=== PATIENT | female | born 2000 | race Caucasian/White ===

== ENCOUNTER 2021-05-27 15:37 | Emergency (ER) | payer OTHER, SELFPAY ==
[2021-05-27 16:02] VITALS: BP 113/76; PULSE 73; RESP 18; TEMP 37.3; O2SAT 99
--- NOTE | 2021-05-27 16:30 | ED.URI ---
HPI - URI/Sore Throat General Chief Complaint: Upper Respiratory Infection Stated Complaint: stuffy nose and throat drainage Time Seen by Provider: 05/27/21 16:15 Source: patient, RN notes reviewed and old records reviewed Mode of arrival: ambulatory Limitations: no limitations History of Present Illness HPI Narrative: 20 year old female who presents to [facility] care with complaints of nasal drainage and congestion for the past 1 week. Patient states that she was seen in the emergency room at [facility] in [place] on Sunday and had strep test and COVID test which were negative and was treated with Amoxicillin. Patient is concerned that she has been with friend who tested positive for COVID today at this facility. Patient denies any cough or congestion, denies any shortness of breath or any acute fevers. MD elicited complaint: sore throat, rhinorrhea and nasal congestion Pertinent past history: other (tonsillitis) Onset (ago): week(s) (1) Consistency: constant Description of mucous: clear Able to tolerate fluids by mouth: Yes Exacerbating factors: nothing Relieving factors: nothing Context: sick contacts Associated symptoms: denies other symptoms Treatments prior to arrival: other (On Amoxicillin) Related Data Home Medications Medication Instructions Recorded Confirmed sertraline 05/27/21 Allergies Allergy/AdvReac Type Severity Reaction Status Date / Time No Known Allergies Allergy Verified 05/27/21 16:15 Review of Systems Review of Systems: Narrative: CONSTITUTIONAL: Denies fever, chills, or sweats. EYES: Denies visual changes, redness, or discharge. ENT:Positive rhinorrhea, congestion, sore throat, no otalgia. CARDIOVASCULAR: Denies chest pain, palpitations, or edema. RESPIRATORY: Denies cough or dyspnea. GASTROINTESTINAL: Denies abdominal pain, nausea, vomiting, or diarrhea. GENITOURINARY: Denies dysuria or hematuria. SKIN: Denies rash or itching. MUSCULOSKELETAL: Denies back pain, joint pain, or myalgia. NEUROLOGIC: Denies headache, numbness, or weakness. PSYCHIATRIC:Positive anxiety or depression. All systems reviewed & are unremarkable except as noted in HPI and below PMFSH Past Medical History Medical History (Updated 05/29/21 @ 14:55 by Adina Watts NP) Anxiety and depression Bipolar 1 disorder Surgical History Surgical History (Updated 05/29/21 @ 14:56 by Adina Watts NP) No history of previous surgery Family History Family History (Updated 05/29/21 @ 14:57 by Adina Watts NP) Grandparent Hypertension Heart disease Diabetes mellitus Breast cancer Arthritis Mother Hypertension Social History Social History (Updated 05/29/21 @ 14:58 by Adina Watts NP) Tobacco type: e-cigarettes/vaping Alcohol intake: former Substance use: current Substance use type: marijuana Living arrangements: with family Gender identity (if verbalized by the patient): Female Comments At time of signature, agree with nursing past medical, surgical, social and family history. There is no relevant family history pertinent to the presenting complaint Exam Narrative: Exam Narrative: GENERAL: Well-appearing, well-nourished, and in no acute distress. HEAD: Normocephalic, atraumatic. EYES: PERRLA and EOMI. ENT: Nares red with clear rhinorrhea no epistaxis. Mucous membranes moist.TM's normal with good light reflex, throat red with no lesions or exudates, tonsils enlarged NECK: Supple.no lymphadenopathy CHEST: Clear to auscultation. No respiratory distress.SAO2 99% on room air HEART: Regular rate and rhythm. No murmur heard. Normal peripheral pulses. ABDOMEN: Soft, nontender, nondistended, normal active bowel sounds. EXTREMITIES: Normal range of motion. No edema. SKIN: Warm, dry, no rash. NEURO: No focal deficits. Alert and oriented x3. Course Vital Signs Vital signs: Vital Signs Temperature 37.3 C 05/27/21 16:02 Pulse Rate 73 05/27/21 16:02 Respiratory
[2021-05-28 16:46] LABS: SARS-CoV-2 RNA PCR Positive
== END 2021-05-27 16:59 | disposition home or self-care (01) ==
PROVIDERS: Emergency Provider Registered Nurse; PCP Nurse Practitioner Family
DX: U07.1 COVID-19 (principal); F17.200 Nicotine dependence, unspecified, uncomplicated
CPT/HCPCS: 87081; 87426; 87804; 87880; 99213; C9803; G0463; U0003; U0005

== ENCOUNTER 2023-07-25 12:25 | Emergency (ER) | payer OTHER, SELFPAY ==
[2023-07-25 12:35] VITALS: BP 119/77; PULSE 98; RESP 18; TEMP 36.5; O2SAT 98
--- NOTE | 2023-07-25 12:37 | ED.FEMALEGU ---
HPI - Female Genitourinary General Chief complaint: Urogenital-Female Stated complaint: Urinary Problem Source: patient and RN notes reviewed History of Present Illness HPI Narrative: 22 yo F Presents to urgent care with complaints of either having a UTI or STD. Pt reports dysuria, burning with urination, itchiness, foul odor and discomfort down there. PT states she was told a girl she was messing around with has chlamydia. Pt reports a little vaginal discharge. Denies any lower pelvic or abdominal pain. Denies any flank pain, back pain, or vomiting. When asked if she has any fevers or chills, she states she was sick this past week so she's not sure if it was from that or something different. No fevers today. Related Data Home Medications Medication Instructions Recorded Confirmed escitalopram oxalate 20 mg tablet 20 mg PO BID 07/25/23 07/25/23 (Lexapro) hydroxyzine HCl 25 mg tablet 25 mg PO TID PRN Anxiety 07/25/23 07/25/23 risperidone 1 mg tablet (Risperdal) 1 mg PO BID 07/25/23 07/25/23 sertraline 100 mg tablet (Zoloft) 150 mg PO DAILY 07/25/23 07/25/23 trazodone 100 mg tablet 100 mg PO HS 07/25/23 07/25/23 Allergies Allergy/AdvReac Type Severity Reaction Status Date / Time No Known Allergies Allergy Verified 07/25/23 12:47 Review of Systems Review of Systems: Pertinent positives and pertinent negatives per HPI. [facility] Past Medical History Medical History (Updated 07/25/23 @ 13:49 by Yaneli Monk APRN) Anxiety and depression Bipolar 1 disorder Surgical History Surgical History (Updated 05/29/21 @ 14:56 by Adina Watts NP) No history of previous surgery Family History Family History (Updated 05/29/21 @ 14:57 by Adina Watts NP) Grandparent Hypertension Heart disease Diabetes mellitus Breast cancer Arthritis Mother Hypertension Social History Social History (Updated 05/29/21 @ 14:58 by Adina Watts NP) Tobacco type: e-cigarettes/vaping Alcohol intake: former Substance use: current Substance use type: marijuana Living arrangements: with family Gender identity (if verbalized by the patient): Female Comments At the time of my signature, I reviewed and agree with the nursing past medical, surgical, social, and family history. There is no relevant family history pertinent to the patient complaint. Exam Narrative: GENERAL: This is a well-nourished, well-developed patient, in no apparent distress. HEAD: normocephalic, atraumatic. EYES: Sclera clear/white. Vision is grossly intact. EARS: External ears normal, auditory canals clear and without drainage. Hearing grossly intact. NOSE: External nose normal with no obvious nasal discharge, nares without redness, no rhinorrhea. THROAT: Mucous membranes moist, posterior pharynx clear. NECK: Neck supple, non-tender without lymphadenopathy, masses or thyromegaly. CARDIOVASCULAR: Regular rate and rhythm without murmurs, gallops, or rubs. RESPIRATORY: Clear to auscultation. Breath sounds equal bilaterally. No wheezes, rales, or rhonchi. GASTROINTESTINAL: Abdomen soft, non-tender, nondistended. Bowel sounds are active. No hepato-splenomegaly, or palpable masses. No guarding. SKIN: warm, intact with no suspicious lesions or rash, good texture and turgor. NEURO: awake, alert, and oriented to person, place and time. There were no obvious focal neurologic abnormalities. EXTREMITIES: No clubbing, cyanosis, or edema. No joint tenderness, effusion, or edema noted. BACK: Nontender without deformity or crepitus. No flank tenderness. Course Course Level of Care: Express Care Visit Vital Signs Vital signs: Vital Signs Temperature 97.7 F 07/25/23 12:35 Pulse Rate 98 07/25/23 12:35 Respiratory Rate 18 07/25/23 12:35 Blood Pressure 119/77 07/25/23 12:35 Pulse Oximetry 98 07/25/23 12:35 Oxygen Delivery Room Air 07/25/23 12:35 Temperature 97.7 F 07/25/23 12:35 Pulse Rate 98 07/25
[2023-07-25] MEDS: cefTRIAXone 500 MG, LIDOCAINE HCL 1% LOCAL INJ 1 ML IM (13:33)
[2023-07-25 20:20] LABS: Trichomonas Vag PCR NOT DETECTED (NOT DETECTE)
[2023-07-25 20:43] LABS: Chlamydia trachomatis NOT DETECTED (NOT DETECTE); Neisseria gonorrhoeae PCR NOT DETECTED (NOT DETECTE)
== END 2023-07-25 13:53 | disposition home or self-care (01) ==
PROVIDERS: Emergency Provider Nurse Practitioner Family; PCP Nurse Practitioner Family
DX: R30.0 Dysuria (principal); L29.2 Pruritus vulvae; R10.2 Pelvic and perineal pain; N89.8 Other specified noninflammatory disorders of vagina; F41.9 Anxiety disorder, unspecified; F31.9 Bipolar disorder, unspecified
CPT/HCPCS: 81003; 87077; 87086; 87186; 87491; 87591; 87661; 96372; 99214; G0463; J0696

== ENCOUNTER 2024-07-26 18:26 | Emergency (ER) | payer OTHER, SELFPAY ==
[2024-07-26 18:33] VITALS: BP 113/55; PULSE 99; RESP 20; TEMP 36.8; O2SAT 98
--- NOTE | 2024-07-26 18:53 | ED.URI ---
HPI - URI/Sore Throat General Chief Complaint: Upper Respiratory Infection Stated Complaint: cough Time Seen by Provider: 07/26/24 18:53 Source: patient, RN notes reviewed and old records reviewed Mode of arrival: ambulatory Limitations: no limitations History of Present Illness HPI Narrative: 23-year-old female to Express Care with complaint of cough and congestion for 1 month. Patient reports seeing her PCP a few weeks ago where she was given antibiotics and steroids. Patient states that she completed treatment little over a week ago. Patient states that symptoms have returned slowly over the past week and have become acutely worse over the past 2 days. Patient endorses coughing up white mucus. Patient has attempted to treat at home with Mucinex DM with little to no relief. Patient states that she vapes and smokes weed constantly . Patient states that family members have recommended that she go to rehab for this. Patient resting comfortably in exam room in no acute distress. Respirations even and nonlabored. Patient able to speak in full sentences without difficulty. Related Data Home Medications Medication Instructions Recorded Confirmed hydroxyzine HCl 25 mg tablet 25 mg PO TID PRN Anxiety 07/25/23 07/25/23 sertraline 100 mg tablet (Zoloft) 150 mg PO DAILY 07/25/23 07/25/23 trazodone 100 mg tablet 100 mg PO HS 07/25/23 07/25/23 lamotrigine 100 mg tablet mg 07/26/24 lurasidone 40 mg tablet mg 07/26/24 prazosin 5 mg capsule mg 07/26/24 Allergies Allergy/AdvReac Type Severity Reaction Status Date / Time No Known Allergies Allergy Verified 07/26/24 18:28 Review of Systems Review of Systems: All systems reviewed & are unremarkable except as noted in HPI and below Constitutional: Constitutional: Reports no additional constitutional complaints Eyes: Eyes: Reports no additional eye complaints ENT: Reports as per HPI and Reports nasal congestion Cardiovascular: Cardiovascular: Reports no additional cardiovascular complaints, Denies chest pain and Denies dyspnea Respiratory: Respiratory: Reports no additional respiratory complaints, Reports change in phlegm color, Reports cough, Reports pain with cough and Denies dyspnea Musculoskeletal: Musculoskeletal: Reports no additional musculoskeletal complaints Neurologic: Reports system reviewed and no additional complaints, except as documented Psychiatric: Psychiatric: Reports no additional psychiatric complaints PMFSH Past Medical History Medical History Anxiety and depression Bipolar 1 disorder Surgical History Surgical History No history of previous surgery Family History Family History Grandparent Hypertension Heart disease Diabetes mellitus Breast cancer Arthritis Mother Hypertension Social History Social History Tobacco type: e-cigarettes/vaping Alcohol intake: former Substance use: current Substance use type: marijuana Living arrangements: with family Gender identity (if verbalized by the patient): Female Comments At the time of my signature, I reviewed and agree with the nursing past medical, surgical, social, and family history. There is no relevant family history pertinent to the patient complaint. Exam Const: General: cooperative, healthy appearing, no acute distress, well developed, alert, well groomed and well nourished Nutritional Appearance: well nourished Orientation/consciousness: patient oriented x3 Limitations: no limitations HENMT: Head: normal to inspection Ears: external ears normal Face/Nose/Sinus: Normal external nose present, Normal nares present, normal facial exam, No erythema and No edema Face and sinus: normal facial exam, no erythema and no edema Mouth:
[2024-07-26] MEDS: IPRATROPIUM 0.5 MG/ALBUTEROL SULFATE 2.5 MG AMPUL.NEB 3 ML INHALATION (19:08)
--- NOTE | 2024-07-26 19:27 | PC.NURSE ---
pulse ox 98% ra, hr 94, and said feeling better, able to take deeper breaths.
== END 2024-07-26 19:35 | disposition home or self-care (01) ==
PROVIDERS: Emergency Provider Nurse Practitioner Family; PCP Nurse Practitioner Family
DX: J40 Bronchitis, not specified as acute or chronic (principal); F17.290 Nicotine dependence, other tobacco product, uncomplicated; F12.90 Cannabis use, unspecified, uncomplicated; F41.9 Anxiety disorder, unspecified; F32.A Depression, unspecified
CPT/HCPCS: 94640; 99213; G0463

== ENCOUNTER 2024-09-08 11:01 | Emergency (ER) | payer OTHER, SELFPAY ==
[2024-09-08 11:07] VITALS: BP 117/72; PULSE 83; RESP 18; TEMP 36.6; O2SAT 98
--- NOTE | 2024-09-08 12:10 | ED_ITS ---
HPI - General Adult General Chief complaint: Wound/Laceration Stated complaint: Glass Under Finger Nail Time Seen by Provider: 09/08/24 12:00 Source: patient, RN notes reviewed and old records reviewed Mode of arrival: ambulatory Limitations: no limitations History of Present Illness HPI narrative: 24 year old female who presents to [facility] care with complaints of a sliver of her screen saver off of her phone going under the radial side of her nail of her right index finger since last evening. Patient has not soaked area or taken anything for her discomfort which she rates at a 8/10. Patient reports that she needs a work note for today. MD complaint: possible foreign body right index finger Onset (ago): day(s) (last evening) Severity scale (1-10): 8 Pain Consistency: constant Treatments prior to arrival: none Related Data Home Medications Medication Instructions Recorded Confirmed hydroxyzine HCl 25 mg tablet 25 mg PO TID PRN Anxiety 07/25/23 09/08/24 sertraline 100 mg tablet (Zoloft) 150 mg PO DAILY 07/25/23 09/08/24 trazodone 100 mg tablet 100 mg PO HS 07/25/23 09/08/24 lamotrigine 100 mg tablet See Rx Instructions .Route .COMPLEX 07/26/24 09/08/24 lurasidone 40 mg tablet See Rx Instructions .Route .COMPLEX 07/26/24 09/08/24 prazosin 5 mg capsule 5 mg PO DAILY 07/26/24 09/08/24 Allergies Allergy/AdvReac Type Severity Reaction Status Date / Time No Known Allergies Allergy Verified 09/08/24 11:29 Review of Systems Review of Systems: CONSTITUTIONAL: Denies fever, chills, or sweats. EYES: Denies visual changes, redness, or discharge. ENT: Denies rhinorrhea, congestion, sore throat, or otalgia. CARDIOVASCULAR: Denies chest pain, palpitations, or edema. RESPIRATORY: Denies cough or dyspnea. GASTROINTESTINAL: Denies abdominal pain, nausea, vomiting, or diarrhea. GENITOURINARY: Denies dysuria or hematuria. SKIN: Denies rash or itching.reports sliver of phone saver under upper radial nail bed of right index finger MUSCULOSKELETAL: Denies back pain, joint pain, or myalgia. NEUROLOGIC: Denies headache, numbness, or weakness. PSYCHIATRIC: Positive for history of anxiety or depression. All systems reviewed & are unremarkable except as noted in HPI and below PMFSH Past Medical History Medical History Anxiety and depression Bipolar 1 disorder Surgical History Surgical History No history of previous surgery Family History Family History Grandparent Hypertension Heart disease Diabetes mellitus Breast cancer Arthritis Mother Hypertension Social History Social History Tobacco type: e-cigarettes/vaping Alcohol intake: former Substance use: current Substance use type: marijuana Living arrangements: with family Gender identity (if verbalized by the patient): Female Comments At time of signature, agree with nursing past medical, surgical, social and family history. There is no relevant family history pertinent to the presenting complaint Exam Narrative: GENERAL: Well-appearing, well-nourished, and in no acute distress. HEAD: Normocephalic, atraumatic. EYES: PERRLA and EOMI. ENT: Nares clear, no rhinorrhea or epistaxis. Mucous membranes moist. NECK: Supple.no lymphadenopathy CHEST: Clear to auscultation. No respiratory distress. SAO2 98% on room air HEART: Regular rate and rhythm. No murmur heard. Normal peripheral pulses. ABDOMEN: Soft, nontender, nondistended, normal active bowel sounds. EXTREMITIES: Normal range of motion. No edema. SKIN: Warm, dry, no rash. reports sliver of screen saver under upper radial aspect of her nail bed on right index finger, no redness swelling noted to finger reports pain to area on palpation, no visible foreign body NEURO: No focal deficits. Alert and oriented x3. Course Course Emergency Course: Patient is aware of diagnosis, understands and agrees to treatment plan.? Anticipatory guidance given.? Patient agrees to follow-up as directed and is aware of reasons to seek care at the emergency department. Portions of this record may have been created with voice recognition software Level of Care: Express Care Visit Vital Signs Vital signs: Vital Signs Temperature 36.6 C 09/08/24 11:07 Pulse Rate 83 09/08/24 11:07 Respiratory Rate 18 09/08/24 11:07 Blood Pressure 117/72 09/08/24 11:07 Pulse Oximetry 98 09/08/24 11:07 Oxygen Delivery Room Air 09/08/24 11:07 Temperature 36.6 C 09/08/24 11:07 Pulse Rate 83 09/08/24 11:07 Respiratory Rate 18 09/08/24 11:07 Blood Pressure 117/72 09/08/24 11:07 Pulse Oximetry 98 09/08/24 11:07 Oxygen Delivery Room Air 09/08/24 11:07 Reviewed Procedures Other Procedure Procedure 1: Other Procedure: 1215 right index finger soaked in antibacterial saline solution and using sterile tweezers radial aspect of upper nail bed area probed for possible foreign body magnification used with no visible foreign body noted. Medical Decision Making MDM Narrative Medical decision making narrative: Exam findings show no acute concerns or changes; patient is non-toxic appearing and is in no distress.? Patient is appropriate for outpatient treatment and follow-up Differential Diagnosis Differential Diagnosis: possible foreign body right index finger nail bed, pain to right index finger Medical Records Medical records reviewed: Yes I reviewed the external patient's medical records. Vital Signs Vital Signs: Vital Signs Temperature 36.6 C 09/08/24 11:07 Pulse Rate 83 09/08/24 11:07 Respiratory Rate 18 09/08/24 11:07 Blood Pressure 117/72 09/08/24 11:07 Pulse Oximetry 98 09/08/24 11:07 Oxygen Delivery Room Air 09/08/24 11:07 Temperature 36.6 C 09/08/24 11:07 Pulse Rate 83 09/08/24 11:07 Respiratory Rate 18 09/08/24 11:07 Blood Pressure 117/72 09/08/24 11:07 Pulse Oximetry 98 09/08/24 11:07 Oxygen Delivery Room Air 09/08/24 11:07 Critical Care Time Critical Care Time Critical Care Time: No Discharge Plan Discharge Clinical Impression: Foreign body in skin of finger Qualifiers: Encounter type: initial encounter Qualified Code(s): S60.459A - Superficial for eign body of unspecified finger, initial encounter Patient Disposition: Home, Self-Care Condition: Stable Instructions: Mupirocin (On the skin) Additional Instructions: Soak right index finger and warm soapy water twice daily apply mupirocin ointment If no improvement follow-up in the ED Tylenol or ibuprofen for any fever pain If your symptoms persist, change or worsen significantly before you can contact your personal physician then please, without delay, go to the emergency department for further evaluation. Follow-up with PCP in 7-10 days or sooner if needed Prescriptions: New mupirocin 2 % ointment 1 applic topical BID Qty: 22 0RF No Action hydroxyzine HCl 25 mg Tablet 25 mg PO TID PRN (Reason: Anxiety) sertraline [Zoloft] 100 mg Tablet 150 mg PO DAILY trazodone 100 mg Tablet 100 mg PO HS prazosin 5 mg capsule 5 mg PO DAILY lamotrigine 100 mg tablet See Rx Instructions .ROUTE .COMPLEX Rx Instructions: ass prescribed lurasidone 40 mg tablet See Rx Instructions .ROUTE .COMPLEX Rx Instructions: as prescribed Follow-up/Referrals: Trey,Jeanette Rosado APN [Primary Care Provider] - Stand Alone Forms: Work/School Release IP Time of Disposition: 12:26 Quality [place] Coma Scale Eyes: Open Verbal: Oriented and Alert Motor: Follows Commands [place] Coma Total Score: 15
== END 2024-09-08 12:30 | disposition home or self-care (01) ==
PROVIDERS: Emergency Provider Registered Nurse; PCP Nurse Practitioner Family
DX: S60.450A Superficial foreign body of right index finger, initial encounter (principal); W25.XXXA Contact with sharp glass, initial encounter; F41.9 Anxiety disorder, unspecified; F31.9 Bipolar disorder, unspecified; F17.290 Nicotine dependence, other tobacco product, uncomplicated; F12.90 Cannabis use, unspecified, uncomplicated
CPT/HCPCS: 99213; G0463

== ENCOUNTER 2025-04-24 18:23 | Emergency (ER) | payer OTHER, SELFPAY ==
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
--- OUTSIDE RECORDS SUMMARY | 2025-04-24 18:25 | XMS_ITS | Clinical Summary ---
Author Organization [facility] Address [address] [place] [address] Phone Care Team Providers Care Sugar Cane Planter Machine Operator Name Role Phone Trey, Jeanette ROSARIO CNP Primary Care Provider [phone] Allergies Active Allergy Reactions Criticality Noted Date Comments Ondansetron Vomiting 02/18/2025 Medications citalopram (CELEXA) 20 MG Tablet Take 30 mg by mouth daily. Active risperiDONE (RISPERDAL) 1 MG Tablet Take 1 mg by mouth daily. Active hydrOXYzine (VISTARIL) 25 MG Capsule Take 1 Cap by mouth 3 times daily as needed for Anxiety. 30 Cap 0 Active sertraline (ZOLOFT) 50 MG Tablet Take 50 mg by mouth daily. Active traMADol (Ultram) 50 MG Tablet Take 1 Tablet by mouth every 8 hours as needed for Moderate or more severe pain. 12 Tablet 1 Active ondansetron (ZOFRAN) 4 MG Tablet Take 1-2 Tablets by mouth every 8 hours as needed for Nausea - 1st line. 10 Tablet 1 Active prochlorperazin e (COMPAZINE) 5 MG Tablet Take 1-2 Tablets by mouth every 6 hours as needed for Nausea - 1st line. 20 Tablet 5 Active famotidine (PEPCID) 20 MG Tablet Take 1 Tablet by mouth 2 times daily as needed for Heartburn (Stomach irritation). 30 Tablet 5 Active prochlorperazin e (COMPAZINE) 5 MG Tablet Take 1-2 Tablets by mouth every 6 hours as needed for Nausea - 1st line. 10 Tablet 5 Active ibuprofen (MOTRIN) 600 MG TabletIndicatio ns:Pain Take 1 Tablet by mouth every 6 hours as needed for Moderate or more severe pain. Indications: Pain 30 Tablet 5 Active Active Problems Problem Noted Date Diagnosed Date Suicidal ideation 01/03/2017 Suicide attempt by acetaminophen overdose 2016 Encounters Date Type Department Care Team Description 02/18/2025 9:27 AM CDT - 02/18/2025 11:38 AM CDT Emergency [facility] Emergency [address] [place] [address] Crow Rhodes, PALMER Contusion of left little finger Discharge Disposition: Discharged to home or Selfcare 02/18/2025 Travel from Last 3 Months Social History Tobacco Use Types Packs/Day Years Used Date Smoking Tobacco: Never Smokeless Tobacco: Never Alcohol Use Standard Drinks/Week Comments No 0 (1 standard drink = 0.6 oz pur e alcohol) socially Comments No Sex and Gender Information Value Date Recorded Sex Assigned at Not on file Legal Sex Female 7:35 PM CDT Gender Identity Not on file Sexual Orientation Not on file Last Filed Vital Signs Vital Sign Reading Time Taken Comments Blood Pressure 100/63 02/18/2025 11:37 AM CDT Pulse 80 02/18/2025 11:37 AM CDT Temperature 37 C (98.6 F) 02/18/2025 9:24 AM CDT Respiratory Rate 16 02/18/2025 11:37 AM CDT Oxygen Saturation 97% 02/18/2025 11:37 AM CDT Inhaled Oxygen Concentration - - Weight 59.4 kg (131 lb) 02/18/2025 9:24 AM CDT Height 167.6 cm (5' 6) 02/18/2025 9:24 AM CDT Body Mass Index 21.14 02/18/2025 9:24 AM CDT Plan of Treatment Upcoming Encounters Date Type Department Care Team (Latest Contact Info) Description 05/26/2025 2:00 PM CDT Outpatient Clinic Visit [facility] [address] [place] [address] Chelle Joyce, INDUSTRIAL SOCIOLOGIST [address] [place] [address] Discharge Disposition: Discharged to home or Selfcare Health Maintenance Due Date Last Done Comments Hepatitis C Virus (HCV) Screening 2000 Pap Smear 2021 SARS-COV-2 Immunization ( season) 2024 07/05/2021 Influenza Immunization (Season Ended) 2025 09/10/2020, 10/07/2019, 08/15/2018, Additional history exists Respiratory Syncytial Virus (RSV) Immunization (Adult) (1 - 1-dose 75+ series) 2075 Pneumococcal Immunization Combined Aged Out 01/20/2001, 2000 No longer eligibl e based on patient's age to complete this topic DTaP/Tdap/Td Immunization Discontinued 2011, 07/03/2006, 01/16/2003, Additional history exists TdaP Immunization Completed 01/02/2012 Hepatitis B Immunization Completed 012, 01/21/2001, 2000, Additional history exists Human Papillomavirus (HPV) Immunization Completed 07/16/2012, 03/05/2012, 01/02/2012 Meningococcal B Immunization Discontinued 09/07/2017 Meningococcal Immunization (ACWY) Completed 09/07/2017, 01/02/2012 Rotavirus Immunization Aged Out No lo nger eligible based on patient's age to complete this topic Procedures Procedure Name Priority Date/Time Associated Diagnosis Comments XR HAND 3 OR MORE VIEWS LEFT STAT 02/18/2025 9:48 AM CDT from Last 3 Months Results * XR HAND 3 OR MORE VIEWS LEFT (02/18/2025 9:48 AM CDT) Anatomical Region Laterality Modality UPPER EXTREMITY, hand Left Digital Ra diography 02/18/2025 11:1 0 AM CDT Impressions 02/18/2025 11:13 AM CDT IMPRESSION: No acute osseous findings. Narrative 02/18/2025 11:13 AM CDT EXAM DESCRIPTION: XR HAND 3 OR MORE VIEWS LEFT REASON FOR STUDY: left little finger crush injury, swelling and ecchymosis to proximal/middle phalanx today- limited range of motion and increased pain with movement TECHNIQUE: 3 radiographic view(s) of the left hand . COMPARISON: None available FINDINGS: Joint alignment is normal. The joint spaces appear normal. No acute fracture or aggressive bone lesion is seen. No radiopaque foreign body identified THIS IS AN ELECTRONICALLY VERIFIED FINAL REPORT 02/18/2025 11:10 AM - Electronically signed by Esequiel Davis M.D. MZ: MICHAEL Report ID: [id number] Reading Location: [id number] Procedure Note Esequiel Davis MD - 02/18/2025 EXAM DESCRIPTION: XR HAND 3 OR MORE VIEWS LEFT REASON FOR STUDY: left little finger crush injury, swelling and ecchymosis to proximal/middle phalanx today- limited range of motion and increased pain with movement TECHNIQUE: 3 radiographic view(s) of the left hand . COMPARISON: None available FINDINGS: Joint alignment is normal. The joint spaces appear normal. No acute fracture or aggressive bone lesion is seen. No radiopaque foreign body identified THIS IS AN ELECTRONICALLY VERIFIED FINAL REPORT 02/18/2025 11:10 AM - Electronically signed by Esequiel Davis M.D. MZ: MZ Report ID: [id number] Reading Location: [id number] IMPRESSION: No acute osseous findings. Crow Rhodes [facility] IMG DIAGNOSTIC ORDER LISS Final Result from Last 3 Months Insurance [employer]ID [employer] Advance Directives * Full Code (Latest Code Status on File) Date Activated Date Inactivated Comments 01/02/2017 11:28 PM 01/03/2017 2:55 PM CPR-Full Tr eatment: FULL ARREST: Attempt Resuscitation/CPR wit intubation and mechanical ventilation. PRE-ARREST: Use entire range of life support measures to stabilize the patient. Care Teams Sugar Cane Planter Machine Operator Relationship Specialty Start Date End Date Jeanette Yang APRN, CNP [address] [place] [address] PCP - General Family Medicine 12/09/18
--- OUTSIDE RECORDS SUMMARY | 2025-04-24 18:25 | XMS_ITS | Encounter Summary ---
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 Name Role Phone Jeanette Yang APRN, CNP Primary Care Provider [phone] Reason for Referral * PT/OT/ST (Routine) - Open Specialty Diagnoses / Procedures Referred By Giovanni armando Referred To Contact Occupational Therapy Diagnoses Pain in right elbow Jeanette Yang APRN, CNP [address] [place] [address] Phone: tel: fax: Referral ID Status Reason Start Date Expiration Date Visits Re quested Visits Authorized [id number] Open 05/06/2024 10 10 Scheduling Instructions Encounter Details Date Type Department Care Team (Late st Contact Info) Description 05/06/2024 Transcribe Orders [facility] [address] [place] [address] Jeanette Yang APRN, CNP [address] [address] Pain in right elbow (Primary Dx) Social History Tobacco Use Types Packs/Day Years Used Date Smoking Tobacco: Never Smokeless Tobacco: Never Alcohol Use Standard Drinks/Week Comments No 0 (1 standard drink = 0.6 oz pur e alcohol) socially Comments No Sex and Gender Information Value Date Recorded Sex Assigned at Not on file Legal Sex Female 7:35 PM CDT Gender Identity Not on file Sexual Orientation Not on file documented as of this encounter Plan of Treatment Upcoming Encounters Date Type Department Care Team (Latest Contact Info) Description 05/26/2025 2:00 PM CDT Outpatient Clinic Visit [facility] [address] [place] [address] Chelle Joyce, PEARL PELLER [address] [place] [address] Discharge Disposition: Discharged to home or Selfcare Scheduled Referrals Name Type Priority Associated Diagnoses Order Schedule OCCUPATIONAL THERAPY REFERRAL Outpatient Referral Routine Pain in right elbow Expected: 05/06/2024, Expires: 05/06/2025 documented as of this encounter Visit Diagnoses Diagnosis Pain in right elbow- Primary Pain in joint, upper arm documented in this encounter Care Teams Seed Potato 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
[2025-04-24 18:27] VITALS: BP 110/73; PULSE 92; RESP 16; TEMP 36.7; O2SAT 99
[2025-04-24 18:43] LABS: EDSTREPNEGPOS1 Negative (Negative)
--- NOTE | 2025-04-24 18:45 | ED.URI ---
HPI - URI/Sore Throat General Chief Complaint: Upper Respiratory Infection Stated Complaint: Sore Throat/Cough Time Seen by Provider: 04/24/25 18:37 Source: patient and RN notes reviewed Mode of arrival: ambulatory Limitations: no limitations History of Present Illness HPI Narrative: Patient presents today with a 10 day history of sore throat, productive cough, and nasal congestion with sinus pressure. Denies fever, shortness of breath, difficulty swallowing. Currently rates her pain 9/10 and has been taking Mucinex DM with mild relief. History of to right maxillary sinus fracture for which she did not get the recommended plastic surgery. States this makes her more prone to sinus infections. She was on amoxicillin last month for a bacterial sinus infection . Related Data Home Medications ?Medication ?Instructions ?Recorded ?Confirmed ?Last Taken ?Type hydroxyzine HCl 25 mg tablet 25 mg PO TID PRN Anxiety 07/25/23 09/08/24 Unknown History sertraline 100 mg tablet (Zoloft) 150 mg PO DAILY 07/25/23 09/08/24 Unknown History trazodone 100 mg tablet 100 mg PO HS 07/25/23 09/08/24 Unknown History prazosin 5 mg capsule 5 mg PO DAILY 07/26/24 09/08/24 Unknown History lamotrigine 25 mg tablet mg 04/24/25 Unknown History lurasidone 60 mg tablet 25 mg 04/24/25 Unknown History Allergies Allergy/AdvReac Type Severity Reaction Status Date / Time No Known Allergies Allergy Verified 04/24/25 18:35 Review of Systems Review of Systems: CONSTITUTIONAL: Denies body aches, fever, chills, or sweats. EYES: Denies visual changes, redness, or discharge. ENT: Denies rhinorrhea, or otalgia.+ congestion, sore throat CARDIOVASCULAR: Denies chest pain, palpitations, or edema. RESPIRATORY: Denies dyspnea.+ cough GASTROINTESTINAL: Denies abdominal pain, nausea, vomiting, or diarrhea. GENITOURINARY: Denies dysuria or hematuria. SKIN: Denies rash, itching, or wounds. MUSCULOSKELETAL: Denies back pain, joint pain, or myalgia. NEUROLOGIC: Denies headache, numbness, tingling, or weakness. PSYCH: Denies depression or anxiety. [facility] Past Medical History Medical History Anxiety and depression Bipolar 1 disorder Surgical History Surgical History No history of previous surgery Family History Family History Grandparent Hypertension Heart disease Diabetes mellitus Breast cancer Arthritis Mother Hypertension Social History Social History Tobacco type: e-cigarettes/vaping Alcohol intake: former Substance use: current Substance use type: marijuana Living arrangements: with family Gender identity (if verbalized by the patient): Female Comments At time of signature, I have reviewed and agree with nursing past medical, surgical, social and family history unless otherwise noted. Please see nursing chart for further information. There is no relevant family history pertinent to the presenting complaint Exam Narrative: GENERAL: Well-appearing, well-nourished, and in no acute distress. HEAD: Normocephalic, atraumatic. EYES: EOMI. No redness or drainage. Conjunctivae normal. ENT: Mucous membranes pink and moist. Nares congested. TMs normal bilaterally. Throat erythematous without edema or exudate. Uvula midline. NECK: Normal AROM. Supple. No lymphadenopathy. CHEST: No respiratory distress. Clear to auscultation. HEART: Regular rate and rhythm. No murmur appreciated. EXTREMITIES: Normal range of motion. No edema. SKIN: Warm, dry, no rash. Capillary refill normal. Normal skin turgor. NEURO: No focal deficits. Alert and oriented x3. Gait steady. PSYCH: Normal affect. No signs of depression or anxiety. Course Course Level of Care: Express Care Visit Vital Signs Vital signs: Vital Signs Temperature 98.1 F 04/24/25 18:27 Pulse Rate 92 04/24/25 18:27 Respiratory Rate 16 04/24/25 18:27 Blood Pressure 110/73 04/24/25 18:27 Pulse Oximetry 99 04/24/25 18:27 Oxygen Delivery Room Air 04/24/25 18:27 Temperature 98.1 F 04/24/25 18:27 Pulse Rate 92 04/24/25 18:27 Respiratory Rate 16 06/13/25 18:27 Blood Pressure 110/73 04/24/25 18:27 Pulse Oximetry 99 04/24/25 18:27 Oxygen Delivery Room Air 04/24/25 18:27 Reviewed MDM - URI/Sore Throat MDM Narrative Medical decision making narrative: Rapid strep negative. Patient will be started on a course of Augmentin for presumed bacterial sinusitis. Anticipatory guidance given. Differential Diagnosis Differential diagnosis: Likely upper respiratory infection, sinusitis, viral infection, bronchitis, pharyngitis and other (Strep throat) Lab Data Attestation: I reviewed the patient's lab results. Labs: Lab Results 04/24/25 Range/Units 18:40 POC Grp A Strep Screen Negative (Negative) Critical Care Time Critical Care Time Critical Care Time: No Discharge Plan Discharge Clinical Impression: Sinusitis Qualifiers: Sinusitis location: unspecified location Chronicity: acute Recurrence: recurrent Qualified Code(s): J01.91 - Acute recurrent sinusitis, unspecified Patient Disposition: Home Condition: Stable Instructions: Antibiotic Form, Sinusitis (ED) Additional Instructions: Your rapid strep screen is negative. You will be notified by telephone if the culture comes back positive. Please take the Augmentin as prescribed until gone. You may continue the Mucinex DM if you wish. Also consider an intranasal steroid such as Flonase to help with your congestion and sinus pressure. Follow-up with your PCP next week if symptoms are not improving. Patient Language: Northern Irish Prescriptions: New amoxicillin-pot clavulanate 875-125 mg tablet 1 tablet PO Q12H 7 Days Qty: 14 0RF No Action hydroxyzine HCl 25 mg Tablet 25 mg PO TID PRN (Reason: Anxiety) sertraline [Zoloft] 100 mg Tablet 150 mg PO DAILY trazodone 100 mg Tablet 100 mg PO HS prazosin 5 mg capsule 5 mg PO DAILY mupirocin 2 % ointment 1 applic topical BID Qty: 22 0RF lamotrigine 25 mg tablet lurasidone 60 mg tablet 25 mg Follow-up/Referrals: Trey,Jeanette Rosado APN [Primary Care Provider] - Time of Disposition: 18:49
== END 2025-04-24 18:54 | disposition home or self-care (01) ==
PROVIDERS: Emergency Provider Nurse Practitioner; PCP Nurse Practitioner Family
DX: J01.91 Acute recurrent sinusitis, unspecified (principal); F17.290 Nicotine dependence, other tobacco product, uncomplicated; F41.9 Anxiety disorder, unspecified; F32.A Depression, unspecified; F12.90 Cannabis use, unspecified, uncomplicated
CPT/HCPCS: 87081; 87880; 99213; G0463

== ENCOUNTER 2025-06-30 19:29 | Emergency (ER) | payer OTHER, SELFPAY ==
--- NOTE | 2025-06-30 19:30 | ED.DENTAL ---
HPI - Dental/Oral General Chief complaint: Dental/Oral Stated complaint: L mouth pain Time Seen by Provider: 06/30/25 19:30 Source: patient Mode of arrival: ambulatory Limitations: no limitations History of Present Illness HPI Narrative: Kati is a 24-year-old female patient presenting to the clinic today with complaints of left dental pain x1 day. She reports her left bottom wisdom tooth that is cutting through and it is causing her lot of pain and swelling in the left lower jaw. Has not taken anything for pain. Has not seen a dentist. No fevers, chills, body aches. Patient reports that they does not have any pain medications to take at home Related Data Home Medications ?Medication ?Instructions ?Recorded ?Confirmed ?Last Taken ?Type hydroxyzine HCl 25 mg tablet 25 mg PO TID PRN Anxiety 07/25/23 09/08/24 Unknown History sertraline 100 mg tablet (Zoloft) 150 mg PO DAILY 07/25/23 09/08/24 Unknown History trazodone 100 mg tablet 100 mg PO HS 07/25/23 09/08/24 Unknown History prazosin 5 mg capsule 5 mg PO DAILY 07/26/24 09/08/24 Unknown History lamotrigine 100 mg tablet mg 06/30/25 Unknown History lurasidone 80 mg tablet mg 06/30/25 Unknown History quetiapine 50 mg tablet mg 06/30/25 Unknown History Allergies Allergy/AdvReac Type Severity Reaction Status Date / Time No Known Allergies Allergy Verified 06/30/25 19:37 Review of Systems Review of Systems: Pertinent positives per HPI. Patient denies any fever, chills, rash, headache, visual changes, dizziness, cough, shortness of breath, chest pain, palpitations, nausea, vomiting, diarrhea, constipation, abdominal pain, or any urinary issues. [facility] Past Medical History Medical History Anxiety and depression Bipolar 1 disorder Surgical History Surgical History No history of previous surgery Family History Family History Grandparent Hypertension Heart disease Diabetes mellitus Breast cancer Arthritis Mother Hypertension Social History Social History Tobacco type: e-cigarettes/vaping Alcohol intake: former Substance use: current Substance use type: marijuana Living arrangements: with family Gender identity (if verbalized by the patient): Female Comments At the time of my signature, I reviewed and agree with the nursing past medical, surgical, social, and family history. There is no relevant family history pertinent to the patient complaint. Exam Narrative: General: Well-developed, well nourished, in no apparent distress Head: Normocephalic, atraumatic Eyes: Pupils equally round and reactive to light bilaterally, EOM intact, sclera and conjunctive clear, no discharge, lids normal Ears: TMs intact and clear, ear canals clear, no drainage, grossly hearing normal. Nose: Nares patent, no discharge, no inflammation, no sinus tenderness. Mouth: Oral pharynx without lesions or masses, poor dentition, MMM. Decayed, partially erupted wisdom to his left lower jaw with mild swelling Neck: Supple, trachea midline, no enlargement of anterior or posterior cervical nodes, no thyroid masses or goiter palpable. Cardio: Regular rate and rhythm, s1 and s2 normal, no murmur appreciated. Resp: Clear to auscultation bilaterally, no rhonchi, rales, wheezing or rubs Course Course Emergency Course: Portions of this record may have been created with voice recognition software. Level of Care: Express Care Visit Vital Signs Vital signs: Vital Signs Temperature 36.8 C 06/30/25 19:34 Pulse Rate 76 06/30/25 19:34 Respiratory Rate 20 06/30/25 19:34 Blood Pressure 127/79 06/30/25 19:34 Pulse Oximetry 100 06/30/25 19:34 Oxygen Delivery Room Air 06/30/25 19:34 Temperature 36.8 C 06/30/25 19:34 Pulse Rate 76 06/30/25 19:34 Respiratory Rate 20 06/30/25 19:34 Blood Pressure 127/79 06/30/25 19:34 Pulse Oximetry 100 06/30/25 19:34 Oxygen Delivery Room Air 06/30/25 19:34 Vital signs reviewed MDM - Dental/Oral MDM Narrative Medical decision making narrative: At the time of visit patient is resting comfortably on the exam table. Patient appears to be nontoxic. Complaints of left dental pain x1 day. She reports her left bottom wisdom tooth that is cutting through and it is causing her lot of pain and swelling in the left lower jaw. Has not taken anything for pain. Has not seen a dentist. No fevers, chills, body aches. On exam decayed, partially erupted wisdom to his left lower jaw with mild swelling Plan: I suspect patient has a left wrist him to the dental infection. Prescription for Augmentin and ibuprofen was sent to the pharmacy Supportive measures were discussed with the patient and they voiced understanding discharge instructions and agrees to treatment plan. Return precautions reviewed Differential Diagnosis Differential diagnosis: Likely gingival abscess, dental caries, toothache, dental abscess, fracture of tooth and aphthous ulcer Discharge Plan Discharge Clinical Impression: Dental infection Patient Disposition: Home Condition: Stable Instructions: Antibiotic Form, Toothache (ED) Additional Instructions: Take medications as prescribed-Augmentin and ibuprofen Increase fluids and stay well hydrated May take Tylenol/Motrin as needed for pain or fever May apply Orajel to the affected area to help alleviate pain May apply warm or cool compress to the affected area to help alleviate pain Follow-up with your dentist as soon as possible Patient Language: Uzbek Prescriptions: New ibuprofen 800 mg tablet 800 mg PO TID PRN (Reason: pain) 10 Days Qty: 30 0RF amoxicillin-pot clavulanate 875-125 mg tablet 1 tablet PO Q12H 10 Days Qty: 20 0RF No Action hydroxyzine HCl 25 mg Tablet 25 mg PO TID PRN (Reason: Anxiety) sertraline [Zoloft] 100 mg Tablet 150 mg PO DAILY trazodone 100 mg Tablet 100 mg PO HS prazosin 5 mg capsule 5 mg PO DAILY lamotrigine 100 mg tablet quetiapine 50 mg tablet lurasidone 80 mg tablet Follow-up/Referrals: Trey,Jeanette Rosado APN [Primary Care Provider, Unknown] Time of Disposition: 19:41 Quality NIHSS Nursing Documentation ED NIHSS nursing documentation: reviewed/agree
--- OUTSIDE RECORDS SUMMARY | 2025-06-30 19:32 | XMS_ITS | Clinical Summary ---
Author Organization [facility] Address [address] [place] [address] Phone Care Team Providers Care [facility] Attendant Name Role Phone Trey, Jeanette ROSARIO CNP Primary Care Provider [phone] [phone] Allergies Active Allergy Reactions Criticality Noted Date [...] Active Problems Problem Noted Date Diagnosed Date Bipolar affective disorder 06/09/2025 Anxiety 06/09/2025 Depression 06/09/2025 Grief 06/09/2025 Nightmares 06/09/2025 Suicidal ideation 01/03/2017 Suicide attempt by acetaminophen overdose 2016 Encounters Date Type Department Care Team Description 06/09/2025 3:00 PM CDT [facility] [address] [place] [address] Chelle Joyce LCSW Bipolar affective disorder (HCC) (Primary Dx); Anxiety; Depression; Grief; Nightmares Discharge Disposition: Discharged to home or Selfcare 06/08/2025 Travel 05/26/2025 2:00 PM CDT [facility] [address] [place] [address] Chelle Joyce LCSW Bipolar affective disorder (HCC) (Primary Dx); Anxiety; Depression; Grief; Nightmares Discharge Disposition: Discharged to home or Selfcare 05/26/2025 Travel 05/17/2025 2:45 PM CDT - 05/17/2025 5:29 PM CDT Emergency [facility] [address] [place] [address] Jocelynn Nettles APRN, AGATHA Chest wall pain Discharge Disposition: Discharged to home or Selfcare 05/17/2025 Travel from Last 3 Months Family History Relation Name Status Comments Brother Alive Father Alive Maternal Grandmother Alive Mother Alive Social History Tobacco Use Types Packs/Day Years [...] Sign Reading Time Taken Comments Blood Pressure 110/58 05/17/2025 5:28 PM CDT Pulse 99 05/17/2025 5:28 PM CDT Temperature 36.8 C (98.2 F) 05/17/2025 2:41 PM CDT Respiratory Rate 17 05/17/2025 5:28 PM CDT Oxygen Saturation 99% 05/17/2025 5:28 PM CDT Inhaled Oxygen Concentration - - Weight 54.4 kg (120 lb) 05/17/2025 2:41 PM CDT Height 167.6 cm (5' 6) 05/17/2025 2:41 PM CDT Body Mass Index 19.37 05/17/2025 2:41 PM CDT Plan of Treatment Upcoming Encounters Date Type Department Care Team (Latest Contact Info) Description 07/08/2025 8:45 AM CDT Outpatient Clinic Visit [facility] [address] [place] [address] Chelle Joyce, FINANCIAL ACCOUNTING ANALYST [address] [place] [address] Discharge Disposition: Discharged to home or Selfcare Health Maintenance Due Date Last Done Comments Hepatitis C Virus (HCV) Screening 2000 Pap Smear 2021 SARS-COV-2 Immunization ( season) 2024 07/05/2021 Influenza Immunization (#1) 07/13/202508/14, 10/07/2019, 08/15/2018, Additional history exists Respiratory Syncytial [...] on patient's age to complete this topic Goals Goal Patient Goal Type Associated Problems Recent Progress Patient-Stated? Author ANXIETY Anxiety On track(2024 3:46 PM CDT) No Chelle Joyce LCSW Note: Goal/Objective: Increase coping skills, stress management strategies and focus on self care. Anticipated Time Frame for Goal Completion: 6 months Goal Reviewed with: patient Readiness to change: Ready to change Department associated with goal: [facility] Steps to achieve goal: will attend counseling/psychotherapy sessions at least once monthly, at least 6 sessions, utilizing individual and/or group sessions to express thoughts and feelings. to identify, verbalize and process at least three contributing factors/triggers to anxiety and depression. to identify and verbalize at least three actions/skills to prevent and/or cope with anxiety and depression. to put into action, at least one time weekly, for one month, an action/skill to prevent and or cope with anxiety and depression. STRESS MANAGEMENT Stress Management On track(2024 3:46 PM CDT) Yes Chelle Joyce, FINANCIAL ACCOUNTING ANALYST Note: I wanna work on my anger, feel more calm, learn to let emotions roll off my shoulders Procedures Procedure Name Priority Date/Time Associated Diagnosis Comments CBC WITH AUTO DIFFERENTIAL STAT 05/17/2025 4:02 PM CDT TROPONIN I, HIGH SENSITIVITY (HSTRP) STAT 05/17/2025 4:02 PM CDT CMP (COMPREHENSIVE METABOLIC PANEL) STAT 05/17/2025 4:02 PM CDT COMPLETE BLOOD COUNT (CBC) WITH DIFF STAT 05/17/2025 4:02 PM CDT EKG 12 LEAD STAT 05/17/2025 3:49 PM CDT XR CHEST 2 VIEWS STAT 05/17/2025 3:45 PM CDT EKG SCAN 05/17/2025 12:00 AM CDT from Last 3 Months Results * TROPONIN I, HIGH SENSITIVITY (HSTRP) (05/17/2025 4:02 PM CDT) [facility] TROPONIN I, HIGH SENSITIVITY- [facility] <3 <=14 ng/L 05/17/2025 4:52 PM CDT [facility] Comment: High-sensitivity troponin I results are reported in ng/L making the result appear to be 1,000 times higher than the contemporary troponin I value which is reported in ng/ml. Results from [facility]. Blood Venipuncture / Unknown 05/17/2025 4:02 PM CDT 05/17/2025 4:24 PM CDT us Jocelynn Nettles APRN, AGATHA CHEMISTRY ORDERABL ES Final Result [facility] [address] [place] [address] * (ABNORMAL) CBC with Auto Differential (05/17/2025 4:02 PM CDT) [facility] WBC 15.60(H) 4.00 - 12.00 10(3)/mcL 05/17/2025 4:27 PM CDT [facility] RBC 3.96 3.80 - 5.30 10(6)/mcL 05/17/2025 4:27 PM CDT [facility] HEMOGLOBIN (HGB) 11.8(L) 12.0 - 15.8 g/dL 05/17/2025 4:27 PM CDT [facility] HEMATOCRIT (HCT) 35.6(L) 36.0 - 47.0 % 05/17/2025 4:27 PM CDT [facility] MCV 89.9 82.0 - 96.0 fL 05/17/2025 4:27 PM CDT [facility] MCH 29.8 26.0 - 34.0 pg 05/17/2025 4:27 PM CDT [facility] MCHC 33.1 31.0 - 36.0 g/dL 05/17/2025 4:27 PM CDT [facility] PLATELET COUNT 368 140 - 440 10(3)/mcL 05/17/2025 4:27 PM CDT [facility] RDW 12.7 11.8 - 15.5 % 05/17/2025 4:27 PM CDT [facility] MPV 9.3(L) 9.7 - 12.4 fL 05/17/2025 4:27 PM CDT [facility] NEUTROPHILS 85.0(H) 47.0 - 73.0 % 05/17/2025 4:27 PM CDT [facility] LYMPHOCYTES 8.1(L) 18.0 - 42.0 % 05/17/2025 4:27 PM CDT [facility] MONOCYTES 5.7 4.0 - 12.0 % 05/17/2025 4:27 PM CDT [facility] EOSINOPHILS 0.4 0.0 - 5.0 % 05/17/2025 4:27 PM CDT [facility] BASOPHILS 0.2 0.0 - 1.0 % 05/17/2025 4:27 PM CDT [facility] IMMATURE GRANULOCYTE 0.6(H) 0.0 - 0.4 % 05/17/2025 4:27 PM CDT [facility] Comment:Immature Granulocyte s includes Metamyelocytes, Myelocytes, and Promyelocytes. ABSOLUTE NEUTROPHILS 13.27(H) 1.60 - 7.70 10(3)/mcL 05/17/2025 4:27 PM CDT [facility] ABSOLUTE LYMPHOCYTES 1.26(L) 1.30 - 3.20 10(3)/[facility] 05/17/2025 4:27 PM CDT [facility] ABSOLUTE MONOCYTES 0.89 0.20 - 1.00 10(3)/[facility] 05/17/2025 4:27 PM CDT [facility] ABSOLUTE EOSINOPHIL 0.06 0.00 - 0.40 10(3)/[facility] 05/17/2025 4:27 PM CDT [facility] ABSOLUTE BASOPHILS 0.03 0.00 - 0.10 10(3)/[facility] 05/17/2025 4:27 PM CDT [facility] ABSOLUTE IMMATURE GRANULOCYTE 0.09(H) 0.00 - 0.03 10 (3) mcL. 05/17/2025 4:27 PM CDT [facility] NRBC PER 100 WBC 0 05/17/20 4:27 PM CDT [facility] Blood Venipuncture / Unknown 05/17/2025 4:02 PM CDT 05/17/2025 4:24 PM CDT us Jocelynn Nettles APRN, AGATHA HEMATOLOGY ORDERAB LES Final Result [facility] [address] [place] [address] * (ABNORMAL) CMP (05/17/2025 4:02 PM CDT) SODIUM 138 136 - 145 mmol/L 05/17/2025 4:47 PM CDT [facility] POTASSIUM 3.7 3.5 - 5.1 mmol/L 05/17/2025 4:47 PM CDT [facility] CHLORIDE 107 98 - 107 mmol/L 05/17/2025 4:47 PM CDT [facility] CO2, VENOUS 24 22 - 30 mmol/L 05/17/2025 4:47 PM CDT [facility] ANION GAP 10.7 <18.0 mmol/L 05/17/2025 4:47 PM CDT [facility] GLUCOSE 89 70 - 99 mg/dL 05/17/2025 4:47 PM T [facility] BUN 10 5 - 18 mg/dL 05/17/2025 4:47 PM T [facility] CREATININE, BLOOD 0.83 0.60 - 1.00 mg/dL 05/17/2025 4:47 PM CDT [facility] BUN/CREATININE RATIO 12 12 - 20 ratio 05/17/2025 4:47 PM T [facility] TOTAL PROTEIN 7.3 6.0 - 8.0 g/dL 05/17/2025 4:47 PM T [facility] ALBUMIN 4.2 3.5 - 5.0 g/dL 05/17/2025 4:[address] [facility] A/G RATIO 1.4 1.0 - 2.2 05/17/2025 4:47 PM T [facility] CALCIUM 8.6(L) 8.7 - 10.5 mg/dL 05/17/2025 4:47 PM T [facility] T BILI 0.5 0.2 - 1.2 mg/dL 05/17/2025 4:47 PM T [facility] SGOT (AST) 20 <43 U/L 05/17/2025 4:47 PM T [facility] SGPT (ALT) 10 <56 U/L 05/17/2025 4:[address] [facility] ALKALINE PHOSPHATASE 59 40 - 150 U/L 05/17/2025 4:47 PM T [facility] GFR, ESTIMATED >60 >=60 05/17/2025 4:[address] [facility] Comment: Creatinine Clearance is the preferred criteria for selecting drug dose adjustments in renally impaired patients. The GFR is provided as additional pertinent clinical information. GFR is reported in mL/min/1.73 sq m. Calculation based on the Chronic Kidney Disease Epidemiology Collaboration (CKD- EPI) equation refit without adjustment for race. GFR, EST. >60 >=60 025 4:47 PM CDT [facility] GFR, EST. NONAFRICAN >60 >=60 05/17/2025 4:47 PM CDT [facility] Blood Venipuncture / Unknown 05/17/2025 4:02 PM CDT 05/17/2025 4:24 PM CDT us Jocelynn Nettles APRN, INSTRUMENT MAKER AND REPAIRER CHEMISTRY ORDERABL ES Final Result Performing Organization Address [facility] Co de Phone Number [facility] [address] [place] [address] * EKG 12 LEAD (05/17/2025 3:49 PM CDT) Ventricular Rate 72 BPM EXTERNAL EKG Atrial Rate 72 BPM EXTERNAL EKG P-R Interval 134 ms EXTERNAL EKG QRS Duration 88 ms EXTERNAL EKG Q-T Duration 396 ms EXTERNAL EKG QTC CALCULATION 433 ms EXTERNAL EKG P [place] 72 degrees EXTERNAL EKG R [place] 82 degrees EXTERNAL EKG T [place] 61 degrees EXTERNAL EKG 05/17/2025 3:49 PM CDT Impressions EXTERNAL EKG - 05/18/2025 9:43 AM CDT Normal sinus rhythm Normal ECG When compared with ECG of 21-APR-2020 18:30, No significant change was found ~ Confirmed by Dilshad Santos ([id number]) on 05/18/2025 9:43:39 AM Narrative Procedure Note Dilshad Santos MD - 05/18/2025 IMPRESSION: Normal sinus rhythm Normal ECG When compared with ECG of 21-APR-2020 18:30, No significant change was found ~ Confirmed by Dilshad Santos ([id number]) on 05/18/2025 9:43:39 AM us Jocelynn Nettles APRN, INSTRUMENT MAKER AND REPAIRER IMG ECG ORDERABLES Final Result EXTERNAL EKG * XR CHEST 2 VIEWS (05/17/2025 3:45 PM CDT) Anatomical Region Laterality Modality Chest N/A Digital Radiogra phy 05/17/2025 4:56 PM CDT Impressions 05/17/2025 4:58 PM CDT IMPRESSION: No acute cardiopulmonary process. Narrative 05/17/2025 4:58 PM CDT EXAM DESCRIPTION: XR CHEST 2 VIEWS REASON FOR STUDY: c/o chest discomfort that she noticed upon waking up this morning. Reports pain is worse with any movement, coughing and taking a deep breath. Reports pain is increased when putting pressure on her chest. Pain is directly in the center. Current smoker TECHNIQUE: Frontal and lateral radiographic view(s) of the chest. COMPARISON: Chest radiograph 10/23/2020. FINDINGS: LUNGS: No focal consolidation. No pleural effusion. No pneumothorax. HEART/MEDIASTINUM: Trachea midline. Heart normal size and contour. Hilar and mediastinal structures unremarkable. LINES/TUBES: None. BONES: No acute osseous abnormality. THIS IS AN ELECTRONICALLY VERIFIED FINAL REPORT 05/17/2025 4:56 PM - Electronically signed by Dajuan Stanley M.D. LIDA: LIDA Report ID: [id number] Reading Location: [place] [address] Procedure Note Dajuan Stanley MD - 05/17/2025 EXAM DESCRIPTION: XR CHEST 2 VIEWS REASON FOR STUDY: c/o chest discomfort that she noticed upon waking up this morning. Reports pain is worse with any movement, coughing and taking a deep breath. Reports pain is increased when putting pressure on her chest. Pain is directly in the center. Current smoker TECHNIQUE: Frontal and lateral radiographic view(s) of the chest. COMPARISON: Chest radiograph 10/23/2020. FINDINGS: LUNGS: No focal consolidation. No pleural effusion. No pneumothorax. HEART/MEDIASTINUM: Trachea midline. Heart normal size and contour. Hilar and mediastinal structures unremarkable. LINES/TUBES: None. BONES: No acute osseous abnormality. THIS IS AN ELECTRONICALLY VERIFIED FINAL REPORT 05/17/2025 4:56 PM - Electronically signed by Dajuan Stanley M.D. LIDA: LIDA Report ID: [id number] Reading Location: [place] [address] IMPRESSION: No acute cardiopulmonary process. us Jocelynn Nettles APRN, CNP IMG DIAGNOSTIC ORD ERABLES Final Result * EKG SCAN (05/17/2025 12:00 AM CDT) 05/17/2025 us Provider Scan IMG ECG ORDERABLES Final Result RESULTING AGENCY from Last 3 Months Insurance [employer]ICAID [employer] Advance Directives * Full Code (Latest Code Status on File) Date Activated Date Inactivated Comments 01/02/2017 11:28 PM 01/03/2017 2:55 PM CPR-Full Tr eatment: FULL ARREST: Attempt Resuscitation/CPR wit intubation and mechanical ventilation. PRE-ARREST: Use entire range of life support measures to stabilize the patient. Care Teams [facility] Attendant Relationship Specialty Start Date End Date Jeanette Yang APRN, CNP [address] [place] [address] PCP - General Family Medicine 12/09/18
--- OUTSIDE RECORDS SUMMARY | 2025-06-30 19:32 | XMS_ITS | Encounter Summary ---
Author Organization [facility] Address [address] [place] [address] Phone Care Team Providers Care Book Agent Name Role Phone Jeanette Yang APRN, CNP Primary Care Provider [phone] [phone] Reason for Referral * PT/OT/ST (Routine) - Closed Specialty Diagnoses / Procedures Referred By Giovanni t Referred To Contact Occupational Therapy Diagnoses Pain in right elbow Jeanette Yang APRN, CNP [address] [place] [address] Phone: tel: fax: Referral ID Status Reason Start Date Expiration Date Visits Re quested Visits Authorized [id number] Closed 05/06/2024 10 10 Scheduling Instructions Encounter Details Date Type Department Care Team (Late st Contact Info) Description 05/06/2024 Transcribe Orders [facility] [address] [place] [address] Jeanette Yang APRN, CNP [address] [place] [address] Pain in right elbow (Primary [...] 07/08/2025 8:45 AM CDT Outpatient [facility] [address] [place] [address] Chelle Joyce, PARTS DEPARTMENT MANAGER [address] [place] [address] Discharge Disposition: Discharged to home or Selfcare Scheduled Referrals Name Type Priority Associated Diagnoses Order Schedule OCCUPATIONAL THERAPY REFERRAL Outpatient Referral Routine Pain in right elbow Expected: 05/06/2024, Expires: 05/06/2025 documented as of this encounter Visit Diagnoses Diagnosis Pain in right elbow- Primary Pain in joint, upper arm documented in this encounter Care Teams Book Agent Relationship Specialty Start Date End Date Jeanette Yang APRN, PATIENT REGISTRATION SPECIALIST [address] [place] [address] PCP - General Family Medicine 12/09/18 documented as of this encounter
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
[2025-06-30 19:34] VITALS: BP 127/79; PULSE 76; RESP 20; TEMP 36.8; O2SAT 100
== END 2025-06-30 19:48 | disposition home or self-care (01) ==
PROVIDERS: Emergency Provider Nurse Practitioner Family; PCP Nurse Practitioner Family
DX: K04.7 Periapical abscess without sinus (principal); F17.290 Nicotine dependence, other tobacco product, uncomplicated; F12.90 Cannabis use, unspecified, uncomplicated; F41.9 Anxiety disorder, unspecified; F31.9 Bipolar disorder, unspecified
CPT/HCPCS: 99213; G0463